=== PATIENT | female | born 1930 | race Hispanic/Latino ===

== ENCOUNTER 2017-03-19 16:19 | Emergency (ER) | payer SELFPAY ==
[~2017-03-19 16:19] MED LIST: ISOVUE-370 76%-LOCM 1 ML ONE
[2017-03-19 16:56] LABS: #Basophils 0.1 thou/uL (0.0-0.2); #Eosinphils 0.4 thou/uL (0.0-0.7); #Lymphocytes 2.7 thou/uL (1.20-3.40); #Monocytes 1.1 thou/uL (0.11-0.59); #Neutrophils 8.1 thou/uL (1.40-6.50); %Basophils 0.4 % (0.0-1.0); %Eosinophils 3.1 % (0.0-10.0); %Lymphocytes 22.1 % (21.0-51.0); %Monocytes 8.7 % (0.0-10.0); Hematocrit 42.1 % (36.0-47.0); Mean Platelet Volume 9.4 fL (7.4-10.4); Red Blood Cell (RBC) Count 4.16 mill/uL (4.20-5.40); White Blood Cell (WBC) Count 12.3 thou/uL (4.8-10.8)
--- NOTE | 2017-03-19 17:00 | RAD ---
CHEST ONE VIEW: 03/19/17 HISTORY: 86-year-old female with syncope, shortness of breath and cough for three days. Monitor leads overlie the chest. Mild vascular congestion. No confluent pneumonia, overt edema, or pleural effusion. IMPRESSION: Mild vascular congestion without other acute process. POS: [facility]
[2017-03-19 17:16] LABS: Lactic Acid - Sepsis 1.7 mmol/L (0.5-2.2)
[2017-03-19 17:21] LABS: ALT (SGPT) 26 U/L (8-55); AST (SGOT) 31 U/L (5-34); Alkaline Phosphatase 105 U/L (40-150); Anion Gap 12 mmol/L (10-20); BUN (Urea Nitrogen) 17 mg/dL (9.8-20.1); Bilirubin, Total 0.3 mg/dL (0.2-1.2); CK (CPK) 77 U/L (29-168); Calc. Creatinine Clearance 0 mL/min (70-130); Calcium 8.9 mg/dL (7.8-10.44); Carbon Dioxide 27 mmol/L (23-31); Chloride 106 mmol/L (98-107); Estimated GFR-MDRD 70; Globulin 3.3 g/dL (2.4-3.5); Protein, Total 6.6 g/dL (6.0-8.3)
[2017-03-19 17:23] LABS: Troponin I 0.012 ng/mL (< 0.028)
[2017-03-19 18:05] LABS: Bilirubin Negative (Negative); Blood, Urine Trace (Negative); Glucose, Urine (Dipstick) 100 mg/dL (Negative); Ketone, Urine Negative (Negative); Nitrite Negative (Negative); Protein, Urine (Dipstick) Negative (Neg-Trace)
[2017-03-19 18:08] LABS: Bacteria/HPF None Seen HPF (None Seen); Hyaline Casts/LPF 0-3 HYALINE CAST LPF (0-3 Hyaline); RBC/HPF 0-3 HPF (0-3); Squamous Epithelial 0-3 HPF (0-3); WBC/HPF None Seen HPF (0-3)
[2017-03-19] MEDS ORDERED: Azithromycin 250 MG TAB ONE (18:25)
[2017-03-19] MEDS ORDERED: cefTRIAXone\\ROCEPHIN 1 GM, Syringe 0.4 ML in Sterile Water 9.6 ML SLOW IVP SCH (18:30)
--- NOTE | 2017-03-19 22:55 | CT ---
CT ANGIOGRAM OF THE CHEST 03/19/17 COMPARISON: None. HISTORY: Cough and syncope. TECHNIQUE: Serial axial CT imaging is obtained at 2.5 mm intervals from the thoracic inlet through the upper abd omen with IV contrast using a CT angiogram protocol. Coronal and oblique sagittal 3D reformatted imag ing obtained. FINDINGS: There is no axillary, mediastinal, or hilar lymphadenopathy. Partially imaged upper abdomen grossly u nremarkable. No significant pleural, pericardial or mediastinal fluid. No pneumothorax on either side. Mild volume loss noted in the lingula, right middle lobe, and inferio r anterior right upper lobe. There is a clustered area of small nodules with adjacent linear opacity within the lateral aspect of the lingula, suggesting the possibility of mild inflammatory/infectious pneumonitis. There is no foca l areas of air space disease/consolidation. There is extensive atherosclerotic calcification of the aortic arch. There is scattered atherosclerot ic calcification of the descending thoracic aorta. There is adequate opacification of the pulmonary arterial vasculature, with no evidence for pulmonary arterial embolism. There is mild anterior wedge compression fracture of T7 vertebral body, age indeterminate. There is e levation of right hemidiaphragm. IMPRESSION: 1. No evidence for pulmonary embolism. 2. Subtle clustered area of reticulonodular density identified in the lateral aspect of the ling augustus which may signify a subtle area of inflammatory/infectious pneumonitis. Recommend a followup CT e xamination of the chest in three months following treatment to document resolution. 3. Age indeterminate anterior wedge compression fracture of T7 vertebral body. POS: [facility]
--- NOTE | 2017-03-23 13:25 | EKG ---
Test Reason : SOB Blood Pressure : / mmHG Vent. Rate : 108 BPM Atrial Rate : 108 BPM P-R Int : 150 ms QRS Dur : 060 ms QT Int : 326 ms P-R-T Axes : 028 -09 043 degrees QTc Int : 436 ms Sinus tachycardia Nonspecific ST and T wave abnormality Abnormal ECG Confirmed by REAGAN ALEXANDER MD ([id number]), editorial manager JESSICA ANN ([id number] on 03/23/2017 1:25:22 PM Referred By: Confirmed By:REAGAN ALEXANDER MD
== END 2017-03-19 20:15 | disposition home or self-care (01) ==
LOC: ERS 16:19
DX: J18.9 Pneumonia, unspecified organism (principal); R55 Syncope and collapse; E10.9 Type 1 diabetes mellitus without complications; E78.5 Hyperlipidemia, unspecified
CPT/HCPCS: 36415; 51701; 71010; 71275; 80053; 81003; 81015; 82553; 83605; 83880; 84484; 85025; 85379; 87040; 87086; 93005; 96374; A4216; A4353; J0696

== ENCOUNTER 2017-06-23 08:28 | Outpatient (CLI) | payer OTHER ==
--- NOTE | 2017-06-23 10:17 | CT ---
CONTRAST ENHANCED CT OF THE CHEST: History: Abnormal chest radiograph with findings seen on CT. 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 No evidence of mediastinal, axillary, or hilar lymphadenopathy is seen. Some areas of increased density seen in the lingula. This is stable and unchanged since the previous comparison CT. Findings likely represent an area of scar. I do recommended follow up CT in six months to confirm stability. No other significant abnormality is seen. 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 Thi s is stable and unchanged since the previous comparison CT. Again, mid thoracic compression fractures seen. These are stable. IMPRESSION: Stable CT appearance of the chest, not significantly changed since previous CT from approximately 3 m onths earlier. POS: [facility]
== END 2017-06-23 08:29 | disposition home or self-care (01) ==
LOC: CT 08:28
PROVIDERS: ATTEND Family Medicine
DX: R93.8 Abnormal findings on diagnostic imaging of other specified body structures (principal)
CPT/HCPCS: 71260

== ENCOUNTER 2017-06-29 22:30 | Observation (INO) | payer SELFPAY ==
[2017-06-29] MEDS ORDERED: Fentanyl 100 MCG/2 ML VIAL ONE (22:51)
--- NOTE | 2017-06-29 23:21 | RAD ---
RADIOGRAPH CHEST 1 VIEW: 06/29/17 HISTORY: 86-year-old female status post acute chest trauma from fall. FINDINGS: The thoracic aorta is tortuous and ectatic. There is no evidence of air space density, pneumothorax, or pulmonary edema. The lateral costophrenic angles are sharp. IMPRESSION: 1) No acute pulmonary findings. 2) Ectasia of thoracic aorta. vipin [] POS: [facility]
[2017-06-30] MEDS ORDERED: Ketorolac Tromethamine 30 MG/ML VIAL IVP PRN (02:12)
[2017-06-30] MEDS ORDERED: Ondansetron HCl/PF 4 MG/2 ML Vial IVP PRN ×2 (02:12→17:19)
[2017-06-30] MEDS ORDERED: Dextrose 50% Abboject 50 ML SYRINGE SLOW IVP PRN ×2 (02:12)
[2017-06-30] MEDS ORDERED: Ondansetron ODT 4 MG TAB PO PRN (02:12)
[2017-06-30] MEDS ORDERED: hydrALAZINE 20 MG/ML VIAL SLOW IVP PRN (02:12)
[2017-06-30] MEDS ORDERED: Insulin Regular 300 UNITS/3 ML VIAL SC PRN (02:12)
[2017-06-30] MEDS ORDERED: Dextrose 5% in Water 1,000 ML IV PRN (02:12)
[2017-06-30] MEDS ORDERED: Morphine 5 MG/ML SYRINGE IVP PRN (02:12)
[2017-06-30 02:15] VITALS: BMI 27.5
[2017-06-30] MEDS: Acetaminophen 1,000 MG in Premix Bag 1 BAG IVPB SCH ×4 (02:42→22:13)
[2017-06-30] MEDS: Sodium Chloride 0.9% 1,000 ML IV SCH ×2 (02:42→21:48)
[2017-06-30 04:20] LABS: #Monocytes 0.5 thou/uL (0.11-0.59); #Neutrophils 5.9 thou/uL (1.40-6.50); %Basophils 0.4 % (0.0-1.0); %Eosinophils 0.5 % (0.0-10.0); %Lymphocytes 12.8 % (21.0-51.0); %Neutrophils 79.3 % (42.0-75.0); Hemoglobin 11.1 g/dL (12.0-16.0); Mean Corpuscular HGB CONC 33.6 g/dL (32.0-36.0); Mean Corpuscular Hemoglobin 32.6 pg (27.0-31.0); Mean Platelet Volume 9.3 fL (7.4-10.4); Platelet Count 157 thou/uL (130-400); RBC Distribution Width 12.5 % (11.5-14.5); Red Blood Cell (RBC) Count 3.41 mill/uL (4.20-5.40); White Blood Cell (WBC) Count 7.4 thou/uL (4.8-10.8)
[2017-06-30 04:31] LABS: Anion Gap 11 mmol/L (10-20); BUN (Urea Nitrogen) 17 mg/dL (9.8-20.1); Calc. Creatinine Clearance 42 mL/min (70-130); Calcium 8.5 mg/dL (7.8-10.44); Carbon Dioxide 28 mmol/L (23-31); Chloride 104 mmol/L (98-107); Estimated GFR-MDRD 62; Glucose 234 mg/dL (83-110); Potassium 4.6 mmol/L (3.5-5.1); Sodium 138 mmol/L (136-145)
[2017-06-30] MEDS: Famotidine 20 MG TAB PO SCH (08:25)
--- NOTE | 2017-06-30 08:38 | HP ---
HISTORY OF PRESENT ILLNESS: The patient is an 86-year-old woman who was at home with her gr anddaughter when she reportedly fell down 2-3 stairs, landing on her left wrist. There was no report of loss of consciousness. The patient complained of immediate left wrist pain. She was taken to [facility] Emergency Department in [place] where she underwent evaluation and examination and was noted t o have a comminuted and displaced left distal radius and ulnar fracture, at which time she was transf erred to our facility for evaluation for admission and orthopedic evaluation. There was a belief wing t the patient may have an open fracture. She had a very tiny puncture type wound on her ulnar side. The interview with the radiographs did not appear to communicate with the fracture. Regardless, thi s would still be a type 1 open fracture and did not change the plan. ALLERGIES: None. CURRENT MEDICATIONS: Remeron, furosemide, simvastatin, metformin, potassium chloride. PAST MEDICAL HISTORY: Past medical history was very difficult to obtain, the patient is Amharic-spea felciita only and even with a manager dish, the patient was not very communicative to which the [facility] states this is essentially her baseline. PAST SURGICAL HISTORY: Again, unobtainable until other family members arrive. SOCIAL HISTORY: There is no history of drug, alcohol or tobacco use. The patient resides with her f amily at home, granddaughter states that the patient is in her normal state of health. REVIEW OF SYSTEMS: Ten point review of systems is otherwise negative. PHYSICAL EXAMINATION: VITAL SIGNS: Blood pressure 150/80, heart rate 98, respirations 18, temperature is 97.3, oxygen satu ration is 96% on 2 liters via nasal cannula. GENERAL: The patient is resting comfortably in bed. She appears to be communicating with her [facility], though does not answer all of her questions in entirety, but she does appear appropriate and comf ortable. HEENT: Head is normocephalic, atraumatic. Eyes: Extraocular motion intact. PERRLA bilaterally. E ars are atraumatic without discharge. Oropharynx is clear. NECK: Nontender. Trachea is midline. No JVD. CHEST: Clear to auscultation with moderate inspiratory and expiratory effort, primarily the patient is following commands. ABDOMEN: Soft, flat, nontender with active bowel sounds. PELVIC: Stable. Lower extremities show some very mild pitting edema, but is neurovascularly intact. Right upper extremity is unremarkable. Left upper extremity is in an ulnar gutter splint. She is neurovascularly intact. Capillary refill is less than 3 seconds. BACK: Nontender and atraumatic. LABORATORY DATA: Labs are all pending. RADIOGRAPH FINDINGS: Radiograph of the AP chest shows no acute pulmonary findings, views of the left wrist show a comminuted displaced distal radius and ulnar fracture. ASSESSMENT AND PLAN: 1. Status post ground level fall. 2. Comminuted left distal radius and ulnar fracture. The patient's tetanus was up to date and she w as given Ancef at [place]. The patient will remain splinted and bandaged. 3. The case was discussed with Dr. Cohen and Dr. Vargas. The patient will remain n.p.o. She w ill have pain control, pulmonary toilet, gastritis and mechanical DVT prophylaxis.
[2017-06-30] MEDS ORDERED: FLU VACC TS2017-18 (>65YR) 0.5 ML SYRINGE IM ONE (09:00)
[2017-06-30] MEDS ORDERED: CEFAZOLIN/Water 2 GM/20 ML SYRINGE SLOW IVP SCH ×2 (09:00→17:15)
--- NOTE | 2017-06-30 10:03 | CON ---
DATE OF CONSULTATION: 06/30/2017 REQUESTING PHYSICIAN: Hema Cohen M.D. CONSULTING PHYSICIAN: Ferny Vargas M.D. REASON FOR CONSULTATION: Left wrist fracture. BRIEF HISTORY: This is an 86-year-old female who presented to the emergency department last night after a trip and fall at home down 3 steps of stairs from the kitchen to the living room. His tory is found by way of examiner rating clerk on the floor here in the hospital as well as an Mauritian-speaking f amily member at bedside. The patient was found to have a left distal radius fracture. She also comp lained of left-sided pain in general. No head injury. No loss of consciousness. We have been consu lted for the left distal radius fracture. Family states that she is right hand dominant. She lives at home with multiple other family members. She gets around without a walker. She currently reports pain on her left side including her left wrist. Pain is minimal at this time. States she has not h ad anything to eat or drink since supper last night. PAST MEDICAL HISTORY: Significant for hypertension, diabetes, hyperlipidemia, history of a pulmonary embolus approximately 2-3 years ago. Family states that she did take an anticoagulant, but has been off of this anticoagulant for several months. PAST MEDICAL HISTORY: Noncontributory. PAST SURGICAL HISTORY: Negative. ALLERGIES: No known drug allergies. SOCIAL HISTORY: She is . She is a nonsmoker, nondrinker, she has five childrens and lives wi th family members. REVIEW OF SYSTEMS: A 10 point review of systems was completed and is otherwise negative except for a s stated above. PHYSICAL EXAMINATION: VITAL SIGNS: Temperature 98.3, pulse of 68, respiratory rate of 14, blood pressure 100/64. GENERAL: The patient is awake and alert. She is oriented x3. She is in no acute distress. Family members are at bedside. HEENT: Head is normocephalic, atraumatic. NECK: Supple. LUNGS: Breathing is nonlabored. EXTREMITIES: The left upper extremity was examined with a forearm splint in place. Distal neurovasc ular status is intact. The patient is able to actively move all digits. SKIN: Free of lesions and rashes at splint edges. The patient does have active movement in all thre e other extremities examined today. No other injuries were noted to these extremities. NEUROLOGIC: The patient has no focal neuro deficits. LABORATORY DATA AND IMAGING DATA: CBC demonstrates white blood cell count of 7.4, hemoglobin 11.1, h ematocrit of 33.0 and platelets of 157. Radiographic findings reviewed by me today show a distal ra dius fracture on the left that appears angulated with displacement. Fracture appears intra-articular with comminution. ASSESSMENT: Left distal radius fracture. PLAN: Radiographic findings and plan of care were discussed with the patient and her family today by way of translators. We did discuss surgical care including open reduction and internal fixation of the left distal radius fracture to be performed today. The patient and family are in agreement with the plan of care. Risks, benefits, and alternatives of surgery were discussed at length with the annie almeida and her family. They verbalized understanding. Patient will be consented for surgery. Plans f or surgery later today and then discharged home. She will follow up in the Orthopedic Clinic in 10-1 4 days for reevaluation.
[2017-06-30] MEDS ORDERED: Fentanyl 250 MCG/5 ML VIAL ONE (13:44)
[2017-06-30] MEDS ORDERED: CEFAZOLIN/Water 2 GM/20 ML SYRINGE ONE (14:27)
[2017-06-30] MEDS ORDERED: Ondansetron HCl/PF 4 MG/2 ML Vial ONE (15:22)
[2017-06-30] MEDS ORDERED: Propofol 200 MG/20 ML VIAL ONE (15:22)
[2017-06-30] MEDS ORDERED: Lidocaine 1% PF 5 ML VIAL ONE (15:22)
[2017-06-30] MEDS ORDERED: Ketorolac Tromethamine 30 MG/ML VIAL ONE (15:22)
[2017-06-30] MEDS ORDERED: Fentanyl 100 MCG/2 ML VIAL ONE (16:04)
[2017-06-30] MEDS ORDERED: Meperidine HCl/PF 25 MG/ML VIAL SLOW IVP PRN (17:19)
[2017-06-30] MEDS ORDERED: Promethazine HCl 25 MG/ML VIAL IM PRN (17:19)
[2017-06-30] MEDS ORDERED: Promethazine HCl 25 MG/ML VIAL SLOW IVP PRN (17:19)
[2017-06-30] MEDS ORDERED: HYDROmorphone 2 MG/ML VIAL SLOW IVP PRN (17:19)
[2017-06-30] MEDS ORDERED: Morphine Sulfate 2 MG/ML SYRINGE SLOW IVP PRN (17:19)
--- NOTE | 2017-06-30 17:22 | OP ---
DATE OF PROCEDURE: 06/30/2017 OPERATION: Open reduction and internal fixation of left distal radius fracture. POSTOPERATIVE DIAGNOSIS: Left distal radius fracture. COMPLICATIONS: None. ESTIMATED BLOOD LOSS: Minimal. SURGEON: Ferny Vargas M.D. ANESTHESIA: General. INDICATIONS: Ms. Campbell is an 86-year-old female who fell. She sustained a fracture of the left dis farrukh radius. This had a small open puncture wound over the ulna. The ulna was fractured as well. Sh e was indicated for irrigation and debridement of her open wound as well as ORIF of the distal radius to restore anatomic alignment and promote healing. Risks were reviewed in detail. She elected to p roceed with the operation as well as her family members. DESCRIPTION OF PROCEDURE: Ms. Campbell was identified in the preoperative holding area. Her correct e xtremity was marked. She was carried to the operating room. She was positioned supine. General ane sthesia was induced. A multidisciplinary timeout was performed. The left upper extremity was preppe d and draped in sterile fashion. We began the procedure with a volar approach to the distal radius. We dissected down to the FCR tendon. The tendon sheath was incised. We retracted the tendon medial ly. We then worked more deeply down to the fractured bony level. We encountered the comminuted frac ture with displacement. Hematoma was removed. We then reduced the fracture back into its anatomic p osition using a [place] elevator. We took x-rays confirming this. Next, a [employer]ynthes volar distal radius plate was applied to the volar cortex. A proximal screw as well as multiple locking distal screws w as placed. We took x-ray images again. There were no hardware complications. We finished placing s crews at this point. We then thoroughly irrigated and closed with 2-0 Vicryl suture followed by stap les for the skin. At this point, we made a small incision over the open lateral wound. We dissected down. This did tr ack to the ulna. We thoroughly irrigated this with copious lavage. We then placed several small sta ples to close this wound. We placed the patient in a volar slab splint. She was taken to the [facility] room in good condition without complication. IMPLANTS: Synthes volar distal radius plate was used with multiple locking screws.
--- NOTE | 2017-06-30 20:03 | PRG ---
DATE OF SERVICE: 06/30/2017 ATTENDING PHYSICIAN: Dr. Iron Rios. SUBJECTIVE: Ms. Campbell is an 86-year-old female who is Brazilian speaking only, who was admitted [facility] after falling down two or three stairs and landing on her left wrist. She was taken to the [place] ED and evaluated where she was found to have a comminuted and displaced left distal radius and ulnar fracture which was possibly open given a tiny puncture wound on the ulnar side of her wrist. She was admitted for surgical fixation of her fractures and pain control. Upon exam this morning, th e patient was resting comfortably in bed. She did appear somewhat drowsy, but was able to wake up an d converse with the trauma team. She vocalized no complaints this morning. OBJECTIVE: VITAL SIGNS: BP 100/64, pulse 68, temperature 98.3, respirations 14, O2 sat 100% on 2 liters nasal c annula. GENERAL: The patient is an elderly female resting comfortably in bed. She does not appear to be in any acute distress. HEENT: Normocephalic and atraumatic. RESPIRATORY: Her breath sounds are clear to auscultation bilaterally. CARDIOVASCULAR: She has a regular rate and rhythm. Normal S1 and S2. ABDOMEN: Soft, flat and nontender with normal bowel sounds. EXTREMITIES: She is neurovascularly intact x4. NEUROLOGIC: The patient is grossly alert and oriented. She has no focal deficits. LABORATORY DATA: Hematology: WBC 7.4, hemoglobin 11.1, hematocrit 33.0, platelets 157. Chemistry: Sodium 138, potassium 4.6, chloride 104, bicarbonate 28, BUN 17, creatinine 0.87, glucose 234, calci um 8.5. IMAGING: There are no images to review today. ASSESSMENT: 1. Status post ground level fall. 2. Comminuted left distal radius and ulnar fracture. 3. Acute traumatic pain. PLAN: 1. Optimize pain control postoperatively. 2. Gastritis prophylaxis and DVT prophylaxis once appropriate. 3. Encourage incentive spirometry. 4. Patient will likely be discharged home tomorrow. There was some discussion of sending her home a fter the operation today; however, given her age, Dr. Vargas feels like the safest way to wait unt il tomorrow. This patient was seen and examined along with Dr. Iron Rios on rounds, who agrees with the assess ment and plan.
[2017-06-30] MEDS ORDERED: Acetaminophen 500 MG TAB PO SCH (21:00)
[2017-06-30] MEDS ORDERED: traMADol HCl 50 MG TAB PO PRN (21:04)
[2017-06-30] MEDS: Ibuprofen 200 MG TAB PO SCH (21:42)
[2017-06-30] MEDS ORDERED: Acetaminophen 325 MG TAB PO SCH (22:00)
--- NOTE | 2017-06-30 22:00 | PRG ---
DATE OF SERVICE: 06/30/2017 SUBJECTIVE: The patient is hospital day #2 status post ground level fall in which she sustained a le ft distal radius and ulnar fracture which today she underwent open reduction internal fixation of roman e. She tolerated this procedure well. At the time of my examination, the patient appeared to be res ting comfortably. Her family stated that she had no complaints prior to falling back asleep. OBJECTIVE: VITAL SIGNS: Temperature 98.6, heart rate 80, blood pressure 112/70, respirations 19, oxygen saturat ion is 98% on 2 liters via nasal cannula. GENERAL: The patient is resting comfortably in bed, breathing appears nonlabored. Postoperative tracy ssing and splint were clean, dry, and intact. ASSESSMENT: 1. Status post fall. 2. Left distal radius and ulnar fracture, status post open reduction internal fixation of same. PLAN: Will be to convert all pain medicines to p.o. and most likely will be discharged home tomorrow . The patient has multiple family members to help support her.
[2017-07-01] MEDS: Acetaminophen 325 MG TAB PO SCH ×3 (02:05→08:29)
[2017-07-01] MEDS: Sodium Chloride 0.9% 1,000 ML IV SCH (05:45)
[2017-07-01] MEDS: Ibuprofen 200 MG TAB PO SCH (05:47)
[2017-07-01] MEDS: Famotidine 20 MG TAB PO SCH (08:29)
[2017-07-01 12:08] VITALS: BP 120/73; TEMP 97.9
--- NOTE | 2017-07-01 15:10 | RAD ---
TWO VIEWS DISTAL LEFT WRIST: HISTORY: Open reduction and internal fixation. Patient with a distal radial fracture. FINDINGS: AP and lateral views of the left wrist demonstrate open reduction and internal fixation of the distal radial fracture. A distal ulnar fracture is also present. IMPRESSION: Open reduction and internal fixation, distal left radial fracture. POS: [facility]
--- NOTE | 2017-07-02 15:30 | DIS ---
DATE OF ADMISSION: 06/29/2017 DATE OF DISCHARGE: 07/01/2017 ADMITTING DIAGNOSIS: Left distal radius and ulnar fracture. DISCHARGE DIAGNOSIS: Left distal radius and ulnar fracture. PROCEDURES PERFORMED DURING THIS HOSPITALIZATION: Include left wrist ORIF. DISPOSITION: Home. BRIEF HISTORY AND HOSPITAL COURSE: This is an 86-year-old female who presented to the hospital after a fall at home. She was found to have a distal radius and ulnar fracture. She was admitted to the medicine service. She underwent left wrist ORIF the day after admission. She spent the night for pa in control and observation. She was then discharged home the next morning with family. Postoperativ e pain was adequately managed. The patient was comfortable in her splint. Vital signs were stable u talat discharge. She was mobilizing. Distal neurovascular status was intact in the affected extremity . Discharge instructions reviewed with the patient and family. ACTIVITY: The patient will leave splint intact until follow up with orthopedic team in 10-14 days. Followup appointment with Dr. Vargas in 10-14 days. DISCHARGE CONDITION: Stable. MEDICATIONS: See discharge medication reconciliation.
== END 2017-07-01 13:55 | disposition home or self-care (01) ==
LOC: ERS 22:30 → INTOOBSV 06-30 02:00 → T4-B 06-30 02:00 → SURG A 06-30 17:44
PROVIDERS: ADMIT Surgery; ATTEND Surgery
PROC: 0PSJ04Z Reposition Left Radius with Internal Fixation Device, Open Approach (ICD-10-PCS; principal; 2017-07-01)
PROC: 0PSL04Z Reposition Left Ulna with Internal Fixation Device, Open Approach (ICD-10-PCS; 2017-07-01)
DX: S52.502B Unspecified fracture of the lower end of left radius, initial encounter for open fracture type I or II (principal); S52.202B Unspecified fracture of shaft of left ulna, initial encounter for open fracture type I or II; W10.9XXA Fall (on) (from) unspecified stairs and steps, initial encounter; I10 Essential (primary) hypertension; E78.5 Hyperlipidemia, unspecified; E11.9 Type 2 diabetes mellitus without complications; Z79.84 Long term (current) use of oral hypoglycemic drugs; Z79.899 Other long term (current) drug therapy
CPT/HCPCS: 36415; 36416; 71045; 76001; 80048; 85025; 90471; 90682; 96361; 96365; 96374; 96375; C1713; G0008; G0378; J0131; J1885; J2001; J2405; J2704; J3010; Q2036